=== PATIENT | male | born 1940 | race Caucasian/White ===

== ENCOUNTER 2021-01-31 14:34 | Outpatient (REF) | payer MEDICARE, SELFPAY ==
[2021-01-31 15:37] LABS: Anion Gap 13 (12-20); Blood Urea Nitrogen 17 mg/dL (9-16); Calcium 9.6 mg/dL (8.4-10.2); Carbon Dioxide 28 mmol/L (22-29); Chloride 106 mmol/L (96-108); Estimated Glomerular Filt Rate 45; Glucose Random 93 mg/dL (60-115); Potassium 4.7 mmol/L (3.3-5.1); Sodium 142 mmol/L (135-145)
[2021-01-31 16:00] LABS: T4 Thyroxine 6.8 ug/dL (4.5-12.0); Thyroid Stimulating Hormone 1.59 uIU/mL (0.32-4.0)
[2021-01-31 16:14] LABS: Folate > 20.0 ng/mL (> or = 4.0); Vitamin B12 454 pg/mL (200-900)
== END 2021-01-31 14:35 | disposition home or self-care (01) ==
LOC: HO.LAB 14:34
PROVIDERS: PCP Pediatrics; Visit Provider Psychiatry & Neurology Neurology
DX: I63.9 Cerebral infarction, unspecified (principal); G31.84 Mild cognitive impairment of uncertain or unknown etiology
CPT/HCPCS: 36415; 80048; 82607; 82746; 84436; 84443